=== PATIENT | male | born 1930 | race Caucasian/White ===

== ENCOUNTER 2019-03-27 21:21 | Inpatient (IN) | payer MEDICARE ==
[~2019-03-27] VITALS: Ht 162.6 cm; Wt 72.6 kg
--- NOTE | 2019-03-27 21:21 | NUR ---
TO ER BED 10 [facility]IB [facility] C/O AGITATION, VERBALLY ABUSIVE TO SNF STAFF. PT ON 5150 HOLD. PT AAOX2, AGITATED, UNCOOPERATIVE AND VERBALLY ABUSIVE TO ER STAFF. PENDING ER MD PAIZ.
[2019-03-27 22:02] LABS: BASOPHILS # (AUTO) 0.1 /CMM (0.0-0.2); EOSINOPHILS % (AUTO) 3.9 % (0.0-6.0); HEMATOCRIT 44 % (39-51); HEMOGLOBIN 14.9 g/dL (13.5-17.5); LYMPHOCYTES # (AUTO) 1.5 /CMM (0.8-4.8); LYMPHOCYTES % (AUTO) 23.9 % (20.0-44.0); MEAN CORPUSCULAR HGB CONC 34 g/dl (31.0-36.0); MEAN CORPUSCULAR VOLUME 94 fL (80-96); MONOCYTES # (AUTO) 0.6 /CMM (0.1-1.30); MONOCYTES % (AUTO) 8.9 % (2.0-12.0); NEUTROPHILS # (AUTO) 3.9 /CMM (1.8-8.9); NEUTROPHILS % (AUTO) 62.3 % (43.0-81.0); PLATELET COUNT (AUTO) 245 /CMM (150-450); RED BLOOD CELL COUNT(AUTO) 4.63 MIL/uL (4.5-6.0); WHITE BLOOD COUNT (AUTO) 6.2 K/uL (4.3-11.0)
[2019-03-27 22:10] LABS: CARBON DIOXIDE 24 mmol/L (21-32); CHLORIDE 105 mmol/L (98-107); CREATININE 1.2 mg/dL (0.6-1.3); GLUCOSE 254 mg/dL (74-106); POTASSIUM 3.7 mmol/L (3.5-5.1); SODIUM SERUM 139 mmol/L (136-145); UREA NITROGEN, BLOOD 24 mg/dL (7-18)
[2019-03-27 22:15] LABS: ALANINE AMINOTRANSFERASE 36 U/L (12-78); ALBUMIN 3.3 g/dL (3.4-5.0); ALCOHOL, BLOOD < 3 mg/dL (0-0); ALKALINE PHOSPHATASE 99 U/L (46-116); ASPARTATE AMINOTRANSFERASE 21 U/L (15-37); BILIRUBIN,DIRECT 0.1 mg/dL (0.0-0.2); BILIRUBIN,TOTAL 0.4 mg/dL (0.2-1.0)
[2019-03-27 22:17] LABS: ACETAMINOPHEN < 2 ug/ml (10-30); SALICYLATE 0.6 mg/dL (2.8-20.0)
[2019-03-27] MEDS ORDERED: AMLO10TA7 PO (22:41)
[2019-03-27] MEDS ORDERED: FERR325T23 PO (22:41)
[2019-03-27] MEDS ORDERED: ASCO500T9 PO (22:41)
--- NOTE | 2019-03-27 22:51 | NUR ---
REPORT CALLED TO [facility]. WILL TRANSPORT PT TO ROOM 211.
[2019-03-27] MEDS ORDERED: LORAZEPAM INJ 2 MG/ML VIAL IM ONE (23:00)
[2019-03-27] MEDS ORDERED: LORAZEPAM INJ 2 MG/ML VIAL ONE (23:08)
--- NOTE | 2019-03-27 23:15 | NUR ---
PT AGITATED AND AGGRESSIVE WITH STAFF. PT ATTEMPTING TO GET OUT OF BED. AWARE.
[2019-03-28 00:30] VITALS: BP 147/93
--- NOTE | 2019-03-28 00:30 | NUR ---
GPS ADMISSION NOTES: ADMITTED THIS 88-Y/O, MALE, FROM [facility]. PATIENT ADMITTED ON 5150 HOLD FOR DTS/DTO/GD. PER HOLD PT. HAS BEEN AGGRESSIVE TOWARDS CAREGIVERS AND OTHER RESIDENTS. PT IS OFTEN CONFUSED AND TAKES HIS ANGER OUT ON OTHER. PT. OFTEN MAKES IT DIFFERENT FOR HIS TO RECEIVE CARE DUE TO HIS AGGRESSION. UPON FACE TO FACE ASSESSMENT, PATIENT IS A&O X1, CONFUSED, IRRITABLE, COOPERATIVE WITH CARE. REORIENTATION PROVIDED. IN NO APPARENT DISTRESS NOTED. PATIENT REFUSED TO SIGN ADMISSION CONSENTS WELL SKIN BODY ASSESSMENT DESPITE OF EDUCATION PROVIDED. PT'S RIGHTS HANDBOOK & PT. GUIDELINES BOOK GIVEN & DISCUSSED TO THE PATIENT. PT BELONGINGS WERE INVENTORIED & CHECKED FOR CONTRABAND. PT. IS UNDER THE PSYCHIATRIC CARE OF DR. BARR, ORDERS OBTAINED & UNDER THE MEDICAL CARE OF KAYLIE COREY. PATIENT EDUCATED TO THE USE OF CALL CHERY. BED ALARM ON. ENVIRONMENTAL SAFETY CHECK DONE. BED LOCKED & IN LOW POSITION. WILL CONTINUE TO MONITOR Q15 MINUTES FOR SAFETY & BEHAVIOR.
[2019-03-28] MEDS ORDERED: ACETAMINOPHEN 325 MG TABLET PO PRN (01:00)
[2019-03-28] MEDS ORDERED: MAG HYDROX/AL HYDROX/SIMETH 30 ML UDC PO PRN (01:00)
[2019-03-28] MEDS ORDERED: MAGNESIUM HYDROXIDE 30 ML UDC PO PRN (01:00)
[2019-03-28] MEDS ORDERED: BLOOD SUGAR DIAGNOSTIC 1 EACH STRIP IN ONE (01:30)
[2019-03-28] MEDS: AMLODIPINE BESYLATE 10 MG TABLET PO SCH (08:20)
[2019-03-28] MEDS: ASCORBIC ACID 500 MG TABLET PO SCH (08:20)
[2019-03-28] MEDS: FERROUS SULFATE (325 MG) 325 MG/TAB TABLET PO SCH (08:20)
--- NOTE | 2019-03-28 08:20 | NUR ---
GPS RN NOTE: PT IN THE ROOM SITTING IN BED ARGUMENTATIVE, ANGRY MOOD, REFUSED VSS, REFUSED AM MEDICATIONS. WILL CONTINUE MONITORING.
--- NOTE | 2019-03-28 09:44 | NUR ---
FAMILY CONTACT: DAI contacted pts son Anastacio [phone] for collateral information, discharge and treatment planning. SW left a voicemail for callback.
--- NOTE | 2019-03-28 09:49 | NUR ---
FACILITY CONTACT: DAI contacted [facility] Address: [address] [place] [address] and left a voicemail for callback with the [employer] and with Rosa, health care administrator. DAI also spoke with Aimee, band manager on duty who states pt was admitted on 06/27/17 and is not sure if pt can return back. She stated that she does not have much information and will have the nurse call SW back for additional information.
--- NOTE | 2019-03-28 10:08 | NUR ---
FACILITY CONTACT: DAI spoke with adelso Campoverde at [facility] Address: [address] [place] [address] / [phone] who states that pt will have to get re-evaluated for possible admission and also stated pot son is pts only traffic personnel supervisor. Nirali states she does not have additional collateral information.
--- NOTE | 2019-03-28 10:12 | NUR ---
FAMILY CONTACT: SW contacted pts son Anastacio [phone]; this phone number is incorrect.
--- NOTE | 2019-03-28 10:16 | NUR ---
WOUND CARE CONSULT: UNABLE TO DO SKIN ASSESSMENT DUE TO PT AGITATION. PER ADMISSION PHOTOS, PT HAS VERY LONG TOENAILS. DPM CONSULT REQUESTED. DR NEFF NOTIFIED OF CONSULT REQUEST. PER NURSING STAFF, PT AMBULATORY AND CONTINENT. WILL SEE PRNKathryn MARTÍNEZ IN AGREEMENT WITH PLAN OF CARE. CURRENT IMELDA SCORE IS 18.
--- NOTE | 2019-03-28 10:16 | NUR ---
FACILITY CONTACT: SW contacted [facility] Address: [address] [place] [address] for sons contact information. Pts sons correct phone number is ([phone])
--- NOTE | 2019-03-28 10:17 | NUR ---
FAMILY CONTACT: DAI contacted pts kiya Agustin [phone] for collateral information, discharge and treatment planning. DAI left a voicemail for callback.
--- NOTE | 2019-03-28 10:38 | NUR ---
INITIAL DISCHARGE PLAN: Pt lives currently resides at [facility] Address: [address], [place] [address] but per Aimee, manager of pmo she is unsure of pt will be able to return back to the facility. SW will help form a safe and proper discharge in collaboration with .
--- NOTE | 2019-03-28 13:24 | NUR ---
FAMILY CONTACT: SW received a call from pts son Vamsi [phone] stating that the facility cannot legally deny pt from returning back as pt has been diagnosed with Lewy body dementia and has limited capacity. Son stated that if facility denies acceptance he will contact the ombudsman and report them. Son states he lives in [place] and pt has no other family besides him and his who also lives in the same facility and has schizophrenia and Dementia. Son states that he has spoken with Lashay at [facility] Address: [address] [place] [address] several times in the past due them not wanting to accept pt after being admitted to the hospital. Son states that he wishes for pt to return to [facility] Address: [address] [place] [address] .
[2019-03-28 16:00] VITALS: BP 138/96
[2019-03-28] MEDS: VITAMINS A AND D 56.7 GM TUBE TP SCH (17:08)
[2019-03-28 20:01] VITALS: BP 153/84
[2019-03-28] MEDS: DIVALPROEX SODIUM 250 MG TABLET.DR PO SCH (23:02)
--- NOTE | 2019-03-28 23:13 | NUR ---
butcher's assistant notes seen by dr Pena with orders noted and verified. Depakote po given as ordered and pt tolerated well. pt calmed at this time. no signs of any distress noted . kept him warm and comfortable at all times. will continue monitoring q 15 minutes for safety.
--- NOTE | 2019-03-29 06:04 | NUR ---
HISTOPATHOLOGY TECHNICIAN NOTES PT BACK TO BED AFTER USING THE RESTROOM, REFUSED TO USED THE WALKER EVEN I EXPLAINED TO HIM THE PURPOSE OF IT . PT STATED I DON'T NEED THAT BUT IF I NEED IT I WILL USE IT. JUST LIVE THERE "GOD BLESS YOU". STABLE HOLDEN THE NIGHT AND SLEPT WELL. NO SIGNS OF ANY AGITATION NOTED. KEPT HIM WARM AND COMFORTABLE AT ALL TIMES. ENDORSE TO AM NURSE FOR CONTINUITY OF CARE.
[2019-03-29 08:00] VITALS: BP 159/94
[2019-03-29] MEDS: DIVALPROEX SODIUM 250 MG TABLET.DR PO SCH ×2 (08:07→20:49)
[2019-03-29] MEDS: FERROUS SULFATE (325 MG) 325 MG/TAB TABLET PO SCH (08:07)
[2019-03-29] MEDS: ASCORBIC ACID 500 MG TABLET PO SCH (08:07)
[2019-03-29] MEDS: AMLODIPINE BESYLATE 10 MG TABLET PO SCH (08:08)
[2019-03-29 08:30] LABS: CHOLESTEROL 158 mg/dL (<200); HDL CHOLESTEROL 56 mg/dL (40-60); LDL 100 mg/dL (0-99); TRIGLYCERIDES 48 mg/dL (30-150)
[2019-03-29 08:32] LABS: BILIRUBIN,TOTAL 0.5 mg/dL (0.2-1.0); POTASSIUM 4.1 mmol/L (3.5-5.1); TOTAL PROTEIN, SERUM 6.6 g/dL (6.4-8.2)
[2019-03-29] MEDS: VITAMINS A AND D 56.7 GM TUBE TP SCH ×2 (09:12→16:08)
--- NOTE | 2019-03-29 14:31 | NUR ---
GROUP NOTE: SW encouraged pt to attend group on this present day discussing "discharge planning." Pt is confused, disorganized, and disoriented, and unable to engage in a conversation due to Lewy Body Dementia.
[2019-03-29 16:00] VITALS: BP 145/85
--- NOTE | 2019-03-29 16:12 | NUR ---
FACILITY CONTACT: SW contacted [facility] Address: [address] [place] [address] and requested a call back from Rosa, red hat [employer] administrator.
--- NOTE | 2019-03-29 20:00 | NUR ---
RN NOTES RECEIVED ENDORSEMENT FROM BALDO BROUSSARD. FOUND Pt RESTING IN BED. NO S/S OF ACUTE DISTRESS OR SOB NOTED. Pt IS MED COMPLIANT. SAFETY MEASURES IN PLACE. BED LOW, LOCKED, HOB ELEVATED, SIDE RAILS UP, BED ALARM ON. WILL CONTINUE TO MONITOR Pt's CONDITION AND SAFETY THROUGHOUT THE NIGHT.
[2019-03-29 20:15] VITALS: BP 149/71
[2019-03-29 20:30] VITALS: BP 149/71
--- NOTE | 2019-03-30 06:42 | NUR ---
RN CLOSING NOTES: NO SIGNIFICANT CHANGES IN Pt's CONDITION. Pt REMAINED STABLE PER BASELINE. NO S/S OF ACUTE DISTRESS OR SOB NOTED DURING THE NIGHT. ALL NEEDS MET AND ATTENDED TO. SAFETY MEASURES IN PLACE. BED, LOW, LOCKED, HOB ELEVATED, SIDE RAILS UP, & BED ALARM ON. Pt IS RESTING IN BED WITH UNLABORED RESPIRATIONS WITH EQUAL CHEST RISE AND FALL. WILL ENDORSE TO DAYSHIFT RN FOR Pt's KATHI.
[2019-03-30 08:00] VITALS: BP 144/98
[2019-03-30] MEDS: ASCORBIC ACID 500 MG TABLET PO SCH (08:13)
[2019-03-30] MEDS: DIVALPROEX SODIUM 250 MG TABLET.DR PO SCH ×2 (08:13→20:12)
[2019-03-30] MEDS: FERROUS SULFATE (325 MG) 325 MG/TAB TABLET PO SCH (08:13)
[2019-03-30] MEDS: AMLODIPINE BESYLATE 10 MG TABLET PO SCH (08:14)
[2019-03-30] MEDS: VITAMINS A AND D 56.7 GM TUBE TP SCH ×2 (08:16→16:57)
--- NOTE | 2019-03-30 09:21 | NUR ---
FACILITY CONTACT: DAI contacted [facility] Address: [address] [place] [address] and spoke with Rosa, senior network administrator [phone] who provided DAI with information regarding pts placement issues. She stated that pt has not paid rent in 1 year and stated that the facility has already served pt with an eviction notice and hired an insurance attorney to serve pt with an unlawful detainer but stated that due to pts mental capacity the [facility] refused to take pt. Rosa stated that pts son is not involved with pts care and has been non-compliant with payments as well. She states that she will proceed with legal action and states that she will accept pt back. Rosa requested DAI fax clinicals and also a Capacity Declaration form from Dr. Pena. She states that she will ask the college hire to fill out the 602 form. Addendum: 03/30/19 at 0930 by MAYRA LALA DAI faxed clinicals to Rosa
[2019-03-30 16:00] VITALS: BP 134/78
[2019-03-30 20:00] VITALS: BP_SYST 117; BP_SYST 144; BP_DIAS 65; BP_DIAS 98
[2019-03-31 08:00] VITALS: BP 119/69
[2019-03-31] MEDS: ASCORBIC ACID 500 MG TABLET PO SCH (08:34)
[2019-03-31] MEDS: DIVALPROEX SODIUM 250 MG TABLET.DR PO SCH ×2 (08:35→20:57)
[2019-03-31] MEDS: LORAZEPAM 0.5 MG TABLET PO PRN ×2 (08:35→20:57)
[2019-03-31] MEDS: AMLODIPINE BESYLATE 10 MG TABLET PO SCH (08:35)
[2019-03-31] MEDS: FERROUS SULFATE (325 MG) 325 MG/TAB TABLET PO SCH (08:35)
[2019-03-31] MEDS: VITAMINS A AND D 56.7 GM TUBE TP SCH ×2 (08:36→16:32)
[2019-03-31 16:00] VITALS: BP 138/68
[2019-03-31 20:00] VITALS: BP 152/87
[2019-03-31] MEDS: TEMAZEPAM 7.5 MG CAPSULE PO PRN (22:46)
[2019-04-01 08:00] VITALS: BP 130/85
[2019-04-01] MEDS: DIVALPROEX SODIUM 250 MG TABLET.DR PO SCH ×2 (09:25→21:35)
[2019-04-01] MEDS: ASCORBIC ACID 500 MG TABLET PO SCH (09:25)
[2019-04-01] MEDS: FERROUS SULFATE (325 MG) 325 MG/TAB TABLET PO SCH (09:26)
[2019-04-01] MEDS: VITAMINS A AND D 56.7 GM TUBE TP SCH ×2 (09:27→16:45)
[2019-04-01] MEDS: AMLODIPINE BESYLATE 10 MG TABLET PO SCH (09:27)
[2019-04-01 16:00] VITALS: BP 125/63
[2019-04-01 20:16] VITALS: BP 149/79
[2019-04-01] MEDS: TEMAZEPAM 7.5 MG CAPSULE PO PRN (22:13)
--- NOTE | 2019-04-02 06:24 | NUR ---
RN NOTES PT IN GOOD CONDITION, SLEEPING COMFORTABLY, NO S/S OF DISTRESS. BED IN LOW POSITION LOCKED AND SIDE RAILS UP X2.WILL ENDORSE TO AM SHIFT.
[2019-04-02 08:00] VITALS: BP 143/78
[2019-04-02] MEDS: DIVALPROEX SODIUM 250 MG TABLET.DR PO SCH ×2 (08:10→20:42)
[2019-04-02] MEDS: FERROUS SULFATE (325 MG) 325 MG/TAB TABLET PO SCH (08:10)
[2019-04-02] MEDS: ASCORBIC ACID 500 MG TABLET PO SCH (08:10)
[2019-04-02] MEDS: AMLODIPINE BESYLATE 10 MG TABLET PO SCH (08:10)
[2019-04-02] MEDS: VITAMINS A AND D 56.7 GM TUBE TP SCH ×2 (08:12→16:11)
[2019-04-02] MEDS ORDERED: OLANZAPINE 10 MG VIAL IM ONE (10:05)
[2019-04-02] MEDS ORDERED: LORAZEPAM INJ 2 MG/ML VIAL ONE (10:05)
--- NOTE | 2019-04-02 15:16 | NUR ---
GPS RN NOTE: PT IN THE HALLWAY UNSTEADY GAIT REFUSED TO USE WALKER GETTING AGITATED WHEN ASKED TO USE WALKER REFUSED ASSISTANCE. EXPLAIN PT RISK OF FALL WILL CONTINUE MONITORING.
--- NOTE | 2019-04-02 15:40 | NUR ---
GROUP NOTE: SW encouraged pt to participate in group therapy discussing "discharge planing." Pt is confused and disorganized and unable to participate in a group setting. SW attempted to provide intervention but pt is cognitively impaired and unable to engage in a meaningful conversation.
[2019-04-02 16:00] VITALS: BP 148/78
[2019-04-02 20:07] VITALS: BP 120/70
[2019-04-02] MEDS ORDERED: DIVALPROEX SODIUM 250 MG TABLET.DR PO SCH (22:00)
[2019-04-03 08:00] VITALS: BP 132/73
[2019-04-03] MEDS: ASCORBIC ACID 500 MG TABLET PO SCH (08:46)
[2019-04-03] MEDS: VITAMINS A AND D 56.7 GM TUBE TP SCH ×2 (08:46→16:21)
[2019-04-03] MEDS: FERROUS SULFATE (325 MG) 325 MG/TAB TABLET PO SCH (08:46)
[2019-04-03] MEDS: AMLODIPINE BESYLATE 10 MG TABLET PO SCH (08:46)
[2019-04-03] MEDS: DIVALPROEX SODIUM 250 MG TABLET.DR PO SCH ×3 (08:48→21:16)
--- NOTE | 2019-04-03 15:45 | NUR ---
GROUP NOTE: SW encouraged pt to participate in group therapy discussing "reality-testing" Pt is confused and disorganized and unable to participate in a group setting. SW attempted to provide intervention but pt is cognitively impaired and unable to engage in a meaningful conversation.
[2019-04-03 16:00] VITALS: BP 140/81
[2019-04-03 20:00] VITALS: BP 133/65
[2019-04-04] MEDS ORDERED: NICO-676 TP (05:42)
[2019-04-04] MEDS ORDERED: DOCU-141 PO (05:42)
[2019-04-04] MEDS ORDERED: CLON0.1T PO (05:42)
[2019-04-04] MEDS ORDERED: AMLO5TAB9 PO (05:42)
[2019-04-04 08:00] VITALS: BP 149/83
[2019-04-04] MEDS: FERROUS SULFATE (325 MG) 325 MG/TAB TABLET PO SCH (08:04)
[2019-04-04] MEDS: DIVALPROEX SODIUM 250 MG TABLET.DR PO SCH ×3 (08:04→21:31)
[2019-04-04] MEDS: AMLODIPINE BESYLATE 10 MG TABLET PO SCH (08:04)
[2019-04-04] MEDS: ASCORBIC ACID 500 MG TABLET PO SCH (08:05)
[2019-04-04] MEDS: VITAMINS A AND D 56.7 GM TUBE TP SCH ×2 (08:05→16:23)
--- NOTE | 2019-04-04 08:21 | NUR ---
FACILITY CONTACT: DAI contacted [facility] Address: [address] [place] [address] and spoke with Rosa, facilities administrator [phone] to inform her pt will be discharged tomorrow 04/04/19. Rosa agreed with discharge plan. Addendum: 04/04/19 at 0824 by MAYRA LALA 04/05/19.
[2019-04-04 16:00] VITALS: BP 136/71
[2019-04-04 20:03] VITALS: BP 125/57
--- NOTE | 2019-04-04 20:14 | NUR ---
[facility] DAILY FS DOCUMENTATION FOR 1999, WAS MISTAKINGLY CHARTED BY ME UNDER CAMERON'S LOGIN.
[2019-04-04] MEDS: TEMAZEPAM 7.5 MG CAPSULE PO PRN (22:08)
[2019-04-05 08:00] VITALS: BP 143/72
[2019-04-05 08:10] VITALS: BP 143/72
[2019-04-05] MEDS: AMLODIPINE BESYLATE 10 MG TABLET PO SCH (08:10)
[2019-04-05] MEDS: FERROUS SULFATE (325 MG) 325 MG/TAB TABLET PO SCH (08:10)
[2019-04-05] MEDS: ASCORBIC ACID 500 MG TABLET PO SCH (08:10)
[2019-04-05] MEDS: DIVALPROEX SODIUM 250 MG TABLET.DR PO SCH ×2 (08:10→12:08)
[2019-04-05] MEDS: VITAMINS A AND D 56.7 GM TUBE TP SCH (09:32)
--- NOTE | 2019-04-05 09:46 | NUR ---
Dr. Pena gave an order to D/C hold and D/C to [facility] and to follow up with psych and medical doctors. Pt. without distress, denies suicidal and homicidal. Belongings ready, pictures taken for the skin issues. Dr. Coffey made aware of the discharge and reconciled the meds to continue.
--- NOTE | 2019-04-05 09:58 | NUR ---
DISCHARGE NOTE: Pt will be discharged at 3:00pm via [facility] to [facility] Address: [address] [place] [address] . Pts son Vamsi [phone] has been notified via voicemail. Pts mood is euthymic with congruent affect. Pt denied suicidal/homicidal ideation. Pt denied visual/auditory hallucinations. Pt will follow up with Psychiatrist: Dr. Lee at [address] [address] on Tuesday04/09/19 at 10:00am. SW faxed clinicals to and was given a referral for follow up with [facility] Address: [address] [place] [address] . The multidisciplinary exit care form was done, printed, signed, and given to the patient.
--- NOTE | 2019-04-05 15:15 | NUR ---
Pt. left the unit with belongings and was picked by [facility]. Instructed on meds to continue at home and verbalizes understanding and encouraged to make a follow up with his psychiatrist and medical doctors and agreed. Pt. left the unit via a wheelchair and escorted by staff to the lobby. Left without distress and on stable condition. V/S taken: 140/76, AK 72, RR 18, temp. 98.2 and oxygen sat. 94%.
== END 2019-04-05 15:15 | DRG 885 ==
LOC: ER 21:30 → GPS 22:05
PROVIDERS: ADMIT Psychiatry & Neurology Psychiatry; ATTEND Nurse Practitioner Acute Care
PROC: 0HBRXZZ Excision of Toe Nail, External Approach (ICD-10-PCS; principal; 2019-03-28)
DX: F39 Unspecified mood [affective] disorder (principal); F29 Unspecified psychosis not due to a substance or known physiological condition; I10 Essential (primary) hypertension; D50.9 Iron deficiency anemia, unspecified; B35.1 Tinea unguium; L85.3 Xerosis cutis; M62.562 Muscle wasting and atrophy, not elsewhere classified, left lower leg; M62.561 Muscle wasting and atrophy, not elsewhere classified, right lower leg
CPT/HCPCS: 36415; 80048-TC; 80053-TC; 80061-TC; 80076-TC; 80164-TC; 82962-TC; 85025-TC; 87081-TC; G0480; J2060; J3490